=== PATIENT | male | born 1950 | race Hispanic/Latino ===

== ENCOUNTER 2019-06-22 04:31 | Emergency (ER) | payer MEDICARE ==
[~2019-06-22 04:31] MED LIST: CANA300T PO; METF-526 PO; PRAV80TA21 PO
[2019-06-22] MEDS ORDERED: TETRACAINE HCL 0.5% 4 ML OPHTH SOLN ONE (04:45)
[2019-06-22] MEDS ORDERED: FLUORESCEIN SODIUM 1 STRIP STRIP ONE (04:46)
[2019-06-22] MEDS ORDERED: ERYTHROMYCIN BASE 0.5% OPHTH OINT 1 GM TUBE ONE (04:59)
== END 2019-06-22 05:35 | disposition home or self-care (01) ==
LOC: EDH 04:31
DX: S05.02XA Injury of conjunctiva and corneal abrasion without foreign body, left eye, initial encounter (principal); E11.9 Type 2 diabetes mellitus without complications; E78.00 Pure hypercholesterolemia, unspecified; Y04.0XXA Assault by unarmed brawl or fight, initial encounter; Y93.89 Activity, other specified; Y92.89 Other specified places as the place of occurrence of the external cause; Y99.8 Other external cause status

== ENCOUNTER → 2019-08-11 | Outpatient (CLI) | payer MEDICARE | END | disposition home or self-care (01) | LOC: RAH 07:20 | PROVIDERS: ATTEND Internal Medicine | DX: K76.0 Fatty (change of) liver, not elsewhere classified (principal); K80.20 Calculus of gallbladder without cholecystitis without obstruction | CPT/HCPCS: 76700 ==